=== PATIENT | male | born 1960 | race Caucasian/White ===

== ENCOUNTER 2023-03-11 14:01 | Emergency (ER) | payer SELFPAY ==
[~2023-03-11] VITALS: Ht 167.6 cm; Wt 82.0 kg
[2023-03-11 14:09] VITALS: O2SAT 100
[2023-03-11] MEDS ORDERED: BACITRACIN ZINC OINT UDPKT TOP ONE (15:30)
[2023-03-11] MEDS ORDERED: LIDOCAINE HCL/PF 1% 10 MG/ML 5ML VIAL INFIL ONE (15:30)
[2023-03-11] MEDS ORDERED: TETANUS, DIPHTHERIA, PERTUSSIS VAC/PF 0.5ML (>10YR OLD) IM ONE (15:30)
[2023-03-11] MEDS ORDERED: AMOX1TAB16 MT (17:28)
[2023-03-11] MEDS ORDERED: BO1 TP (17:28)
[2023-03-11 18:04] VITALS: BP 112/78; PULSE 78; RESP 17; TEMP 98.8
== END 2023-03-11 18:06 | disposition home or self-care (01) ==
LOC: ER 14:01
DX: S61.412A Laceration without foreign body of left hand, initial encounter (principal); X58.XXXA Exposure to other specified factors, initial encounter; Y93.89 Activity, other specified; Y92.89 Other specified places as the place of occurrence of the external cause; Y99.8 Other external cause status
CPT/HCPCS: 90715; 12005; 90471; 99283; J3490; Z7610 ×2

== ENCOUNTER 2023-03-13 10:40 | Emergency (ER) | payer SELFPAY ==
[~2023-03-13] VITALS: Ht 167.6 cm; Wt 82.0 kg
[~2023-03-13 10:40] MED LIST: AMOX1TAB16 MT; BO1 TP
[2023-03-13 10:55] VITALS: BP 122/79; PULSE 92; RESP 17; TEMP 98.9; O2SAT 99
== END 2023-03-13 16:31 | disposition home or self-care (01) ==
LOC: ER 10:40
DX: S61.412D Laceration without foreign body of left hand, subsequent encounter (principal); X58.XXXD Exposure to other specified factors, subsequent encounter
CPT/HCPCS: 99281

== ENCOUNTER 2023-03-18 09:16 | Emergency (ER) | payer OTHER ==
[~2023-03-18] VITALS: Ht 175.3 cm; Wt 79.0 kg
[2023-03-18 09:29] VITALS: BP 126/81; PULSE 71; RESP 20; TEMP 98.5; O2SAT 98
== END 2023-03-18 14:43 | disposition home or self-care (01) ==
LOC: ER 09:16
DX: S61.412D Laceration without foreign body of left hand, subsequent encounter (principal); R20.0 Anesthesia of skin; X58.XXXD Exposure to other specified factors, subsequent encounter
CPT/HCPCS: 99281